=== PATIENT | female | born 1990 | race Caucasian/White ===

== ENCOUNTER 2017-09-19 10:18 | Observation (INO) ==
[2017-09-19 11:19] LABS: Bilirubin,Urine Negative (Negative); Blood,Urine Trace (Negative); Clarity,Urine Cloudy (Clear); Color,Urine Yellow (Yellow); Glucose,Urine (UA) Normal (Normal); Ketones,Urine Negative (Negative); Leukocyte Esterase,Urine Moderate (Negative); Nitrite,Urine Negative (Negative); Protein,Urine Negative (Neg-Trace); Specific Gravity,Urine 1.023 (1.010-1.025); Urobilinogen,Urine Normal (Normal)
[2017-09-19 11:22] LABS: Bacteria,Urine Few per hpf (None-Few); Hyaline Casts,Urine None Seen per lpf (None-Few); Squamous Epithelial Cell,Urine Many per lpf (None-Few)
--- NOTE | 2017-09-19 11:38 | OB/GYN Progress Note ---
Date of Encounter: 09/19/17 Time of Encounter: 11:35 - Assessment and Plan (1) 31 weeks gestation of Current Visit: Yes Status: Acute (2) Vaginal bleeding Current Visit: Yes Status: Acute Speculum exam showed brown colored discharge, probable old blood. Cervix was visualized cervix very friable with any contact with cotton swab, causing cervix to start bleeding, small polyp noted at approximately 12 o'clock position on the anterior cervical os, it does not look like it is in a good position for removal. Gonorrhea and chlamydia culture sent. Discharged home with labor and when to return to triage precautions. Also discussed pelvic rest for the next few weeks. Subjective - Subjective Interval history: 31+ weeks gestation presents to triage with complaints of vaginal bleeding. Before last patient had intercourse since that she was noted to be bleeding afterwards had a $0.50 piece sized spot on her pantiliner, then yesterday it was brown spotting, resumed bright red bleeding today, noticed when wiping and did have small amount and toilet. Reports good movement, denies leaking of fluid. Patient has had intermittent bleeding throughout her Antepartum ROS: vaginal bleeding, movement normal, no loss of fluid, no contractions Objective - Vital Signs Vital Signs: Intake and Output 09/18/17 09/19/17 09/19/17 23:59 07:59 15:59 Other: Weight 72.9 kg Patient Weight 09/19/17 23:59 Weight 72.9 kg - Exam FHR: auscultation normal FHR comments: baseline 135 Abdomen: Present: normal appearance, soft, gravid Cervical dilation: fingertip/long
[2017-09-19 12:59] LABS: Amphetamine Screen,Urine Negative ng/mL (Cutoff=1000); Barbiturate Screen,Urine Negative ng/mL (Cutoff=200); Benzodiazepines Screen,Urine Negative ng/mL (Cutoff=200); Cannabinoid Screen,Urine Negative ng/mL (Cutoff = 50); Cocaine Screen,Urine Negative ng/mL (Cutoff= 300); Opiate Screen,Urine Negative ng/mL (Cutoff=300); Phencyclidine Screen,Urine Negative ng/mL (Cutoff=25)
== END 2017-09-19 12:17 | disposition home or self-care (01) ==
LOC: 1NENULAB
PROVIDERS: ADMIT Student in an Organized Health Care Education/Training Program; ATTEND Student in an Organized Health Care Education/Training Program

== ENCOUNTER 2017-09-29 11:03 | Observation (INO) ==
[2017-09-29 11:35] LABS: Bilirubin,Urine Negative (Negative); Blood,Urine Negative (Negative); Color,Urine Yellow (Yellow); Glucose,Urine (UA) Normal (Normal); Ketones,Urine Negative (Negative); Leukocyte Esterase,Urine Large (Negative); Nitrite,Urine Negative (Negative); Protein,Urine Trace mg/dL (Neg-Trace); Specific Gravity,Urine 1.019 (1.010-1.025); Urobilinogen,Urine Normal (Normal)
[2017-09-29 11:44] LABS: Bacteria,Urine Moderate per hpf (None-Few); Hyaline Casts,Urine None Seen per lpf (None-Few); RBC,Urine 0-3 per hpf (0-3); Squamous Epithelial Cell,Urine Many per lpf (None-Few); WBC,Urine 50-100 per hpf (0-3)
[2017-09-29 11:46] LABS: Clarity,Urine Slightly Hazy (Clear)
--- NOTE | 2017-09-29 12:14 | OB/GYN Progress Note ---
Date of Encounter: 09/29/17 Time of Encounter: 12:12 - Assessment and Plan (1) UTI (urinary tract infection) during Current Visit: Yes Status: Acute Take Macrobid as directed Take Zofran as indicated Follow up as scheduled labor precautions given Okay to discharge home Qualifiers: Trimester: third trimester Qualified Code(s): O23.43 - Unspecified infection of urinary tract in , third trimester (2) 31 weeks gestation of Current Visit: Yes Status: Acute Subjective - Subjective Interval history: Patient presents with complaints of nausea with vomiting 1 episode this morning. She reports positive movement and denies contractions, loss of fluid, vaginal bleeding. Of note, she does have a prescription for Zofran at home that she did not take this morning. Antepartum ROS: movement normal, other, no loss of fluid, no vaginal bleeding, no contractions Objective - Vital Signs Vital Signs: Intake and Output 09/28/17 09/29/17 09/29/17 23:59 07:59 15:59 Other: Weight 72.7 kg Patient Weight 09/29/17 23:59 Weight 72.7 kg - Exam FHR: category 1 FHR comments: Baseline 140 Moderate variability Accelerations present 10x10 No decelerations FHR Category I Auscultation: bilateral: normal Abdomen: Present: normal appearance, soft, gravid Uterus: Present: normal, firm - Labs Labs: Abnormal lab results Ur Leukocyte Esterase Large (Negative) H 09/29/17 11:20 Urine Microscopic WBC 50-100 per hpf (0-3) H 09/29/17 11:20 Ur Squamous Epith Cells Many per lpf (None-Few) H 09/29/17 11:20 Urine Bacteria Moderate per hpf (None-Few) H 09/29/17 11:20 Ur Culture Indicated? NO. (NO) A 09/29/17 11:20
[2017-09-29 12:46] LABS: Amphetamine Screen,Urine Negative ng/mL (Cutoff=1000); Barbiturate Screen,Urine Negative ng/mL (Cutoff=200); Benzodiazepines Screen,Urine Negative ng/mL (Cutoff=200); Cannabinoid Screen,Urine Negative ng/mL (Cutoff = 50); Cocaine Screen,Urine Negative ng/mL (Cutoff= 300); Opiate Screen,Urine Negative ng/mL (Cutoff=300); Phencyclidine Screen,Urine Negative ng/mL (Cutoff=25)
== END 2017-09-29 12:26 | disposition home or self-care (01) ==
LOC: 1NENULAB
PROVIDERS: ADMIT Student in an Organized Health Care Education/Training Program; ATTEND Student in an Organized Health Care Education/Training Program

== ENCOUNTER 2017-10-03 05:16 | Observation (INO) ==
[2017-10-03 05:58] LABS: Bilirubin,Urine Negative (Negative); Blood,Urine Negative (Negative); Clarity,Urine Cloudy (Clear); Color,Urine Dark Yellow (Yellow); Glucose,Urine (UA) Normal (Normal); Ketones,Urine 80 mg/dL (Negative); Leukocyte Esterase,Urine Large (Negative); Nitrite,Urine Negative (Negative); PH,Urine 5.5 pH Units (5.0-8.0); Protein,Urine Trace mg/dL (Neg-Trace); Specific Gravity,Urine 1.029 (1.010-1.025); Urobilinogen,Urine Normal (Normal)
[2017-10-03 06:01] LABS: Bacteria,Urine Few per hpf (None-Few); Hyaline Casts,Urine Few per lpf (None-Few); Squamous Epithelial Cell,Urine Many per lpf (None-Few); WBC,Urine 50-100 per hpf (0-3)
[2017-10-03] MEDS ORDERED: Ringers Solution, Lactated 1,000 ML IVC SCH (06:45)
--- NOTE | 2017-10-03 06:56 | OB/GYN Progress Note ---
Date of Encounter: 10/03/17 Time of Encounter: 06:56 - Assessment and Plan (1) Nausea vomiting and diarrhea Current Visit: Yes Status: Acute Irregular contractions per monitor Urinalysis contaminated, postive for dehydration Encourage po hydration Discharge home with labor precautions and kick counts after 1 liter IVF Follow up in office for appointment as scheduled and prn (2) 33 weeks gestation of Current Visit: Yes Status: Acute Subjective - Subjective Principal diagnosis: Nausea, Vomiting and Diarrhea Interval history: at 33 weeks and 5 days presents to triage with reports vomiting and diarrhea x three times since [place]. Denies vaginal bleeding, leaking fluid. States feeling contractions every 10 minutes, states "not too bad." States baby moving well. Has had no vomiting or diarrhea since she arrived in triage Antepartum ROS: new complaints, no loss of fluid, no vaginal bleeding Objective - Vital Signs Vital Signs: Intake and Output 10/02/17 10/02/17 10/03/17 15:59 23:59 07:59 Other: Weight 71.9 kg Patient Weight 10/03/17 23:59 Weight 71.9 kg - Exam FHR: category 1 FHR comments: FHR 140 Auscultation: bilateral: normal Abdomen: Present: soft, gravid Uterus: Absent: tenderness - Labs Labs: Abnormal lab results Urine Clarity Cloudy (Clear) A 10/03/17 05:48 Ur Specific [place] 1.029 (1.010-1.025) H 10/03/17 05:48 Urine Ketones 80 mg/dL (Negative) H 10/03/17 05:48 Ur Leukocyte Esterase Large (Negative) H 10/03/17 05:48 Urine Microscopic RBC 5-15 per hpf (0-3) H 10/03/17 05:48 Urine Microscopic WBC 50-100 per hpf (0-3) H 10/03/17 05:48 Ur Squamous Epith Cells Many per lpf (None-Few) H 10/03/17 05:48 Ur Culture Indicated? NO. (NO) A 10/03/17 05:48
== END 2017-10-03 08:47 | disposition home or self-care (01) ==
LOC: 1NENULAB
PROVIDERS: ADMIT Advanced Practice Midwife; ATTEND Advanced Practice Midwife

== ENCOUNTER → 2019-12-13 15:10 | Observation (INO) ==
[2019-12-13 16:01] LABS: Amorphous Sediment,Urine Few per hpf (None-Few); Bacteria,Urine Few per hpf (None-Few); Bilirubin,Urine Negative (Negative); Blood,Urine Small (Negative); Clarity,Urine Clear (Clear); Color,Urine Light-Yellow (Yellow); Glucose,Urine (UA) Normal (Normal); Hyaline Casts,Urine Few per lpf (None Seen); Ketones,Urine Negative (Negative); Leukocyte Esterase,Urine Moderate (Negative); Mucus,Urine Few per lpf (None-Few); Nitrite,Urine Negative (Negative); PH,Urine 6.5 pH Units (5.0-8.0); Protein,Urine Negative (Neg-Trace); Specific Gravity,Urine 1.021 (1.010-1.025); Squamous Epithelial Cell,Urine Few per hpf (None-Few); Urobilinogen,Urine Normal (Normal); WBC,Urine 0-3 per hpf (0-3)
[2019-12-13 16:53] LABS: Candida DNA DETECTED (Not Detect); Gardnerella DNA DETECTED (Not Detect); Trichomonas DNA Not Detected (Not Detect)
== END | disposition home or self-care (01) ==
LOC: 1NENULAB
PROVIDERS: ADMIT Student in an Organized Health Care Education/Training Program; ATTEND Student in an Organized Health Care Education/Training Program

== ENCOUNTER 2020-01-15 07:53 | Inpatient (IN) ==
[2020-01-15] MEDS ORDERED: Metoclopramide 10 MG/2 ML VIAL IVP PRN (08:31)
[2020-01-15] MEDS ORDERED: Ondansetron 4 MG/2 ML VIAL IVP PRN ×2 (08:31→10:43)
[2020-01-15] MEDS ORDERED: miSOPROStoL 25 MCG TABLET PO PRN (08:31)
[2020-01-15] MEDS ORDERED: Famotidine 20 MG/2 ML VIAL IVP PRN (08:31)
[2020-01-15] MEDS ORDERED: Azithromycin 500 MG in 0.9 % Sodium Chloride 250 ML IVPB ONE (08:31)
[2020-01-15] MEDS ORDERED: *HR* FentaNYL (PF) 100 MCG/2 ML VIAL IVP PRN (08:31)
[2020-01-15] MEDS ORDERED: Naloxone 0.4 MG/ML INJ IVP PRN ×2 (08:31→10:43)
[2020-01-15] MEDS ORDERED: Ringers Solution, Lactated 1,000 ML IVC SCH (08:45)
[2020-01-15] MEDS ORDERED: Penicillin G Potassium 5,000,000 UNIT in 0.9 % Sodium Chloride Mini Bag 100 ML IVPB ONE (10:08)
[2020-01-15] MEDS ORDERED: Ropivacaine/PF 0.2% 20 ML VIAL EP ONE (10:43)
[2020-01-15] MEDS ORDERED: *HR* FentaNYL (PF) 100 MCG/2 ML VIAL EP ONE (10:43)
[2020-01-15] MEDS ORDERED: EPHEDrine 50 MG/ML VIAL IVP PRN (10:43)
[2020-01-15] MEDS ORDERED: Epidural Premix (fent/bupiv) 110 ML EP SCH (10:45)
[2020-01-15 11:36] LABS: Amphetamine Screen,Urine Negative ng/mL (Cutoff=1000); Barbiturate Screen,Urine Negative ng/mL (Cutoff=200); Benzodiazepines Screen,Urine Negative ng/mL (Cutoff=200); Cannabinoid Screen,Urine Negative ng/mL (Cutoff = 50); Cocaine Screen,Urine Negative ng/mL (Cutoff= 300); Opiate Screen,Urine Negative ng/mL (Cutoff=300); Phencyclidine Screen,Urine Negative ng/mL (Cutoff=25)
[2020-01-15 13:28] LABS: Hematocrit 35.1 % (35.3-44.9); Hemoglobin 11.7 g/dL (11.5-15.4); Mean Corpuscular HGB Conc 33.3 g/dL (31.6-35.5); Mean Corpuscular Hemoglobin 31.2 pg (28.0-33.3); Mean Corpuscular Volume 93.6 fL (83.0-100.0); Mean Platelet Volume 10.7 fL (9.4-12.4); Platelet Count 170 K/mcL (140-400); Red Blood Count 3.75 M/mcL (3.82-4.97); Red Cell Distribution Width 12.9 % (11.5-14.5); White Blood Count 9.9 K/mcL (4.3-11.1)
[2020-01-15] MEDS: Penicillin G Potassium 2,500,000 UNIT in 0.9 % Sodium Chloride 100 ML IVPB SCH ×2 (16:13→21:04)
[2020-01-15] MEDS ORDERED: Oxytocin 20 units/ LR 1000 mL 20 UNIT/1,000 ML BAG IVC SCH (16:30)
[2020-01-15] MEDS ORDERED: Ropivacaine/PF 0.2% 20 ML VIAL ONE (16:39)
[2020-01-16] MEDS ORDERED: Acetaminophen 325 MG TABLET PO PRN (00:58)
[2020-01-16] MEDS ORDERED: Oxytocin 20 units/ LR 1000 mL 20 UNIT/1,000 ML BAG IVC ONE (00:58)
[2020-01-16] MEDS ORDERED: Benzocaine/Menthol 56 GM AEROSOL SPRAY TP PRN (00:58)
[2020-01-16] MEDS ORDERED: Oxytocin 20 units/ LR 1000 mL 20 UNIT/1,000 ML BAG IVC SCH (00:58)
[2020-01-16] MEDS: Ibuprofen 600 MG TABLET PO PRN ×4 (01:40→22:23)
[2020-01-16] MEDS: Prenatal Vit/FA 1 EACH TABLET PO SCH (08:29)
[2020-01-16 22:33] VITALS: BP 112/73
[2020-01-17] MEDS: Ibuprofen 600 MG TABLET PO PRN (08:12)
[2020-01-17] MEDS: Prenatal Vit/FA 1 EACH TABLET PO SCH (08:12)
== END 2020-01-17 12:30 | disposition home or self-care (01) | DRG 807 ==
LOC: 1NENULAB 07:53 → 1NENUOBS 01-16 00:58
PROVIDERS: ADMIT Obstetrics & Gynecology; ATTEND Obstetrics & Gynecology